=== PATIENT | female | born 1995 | race Caucasian/White ===

== ENCOUNTER 2017-04-21 22:20 | Emergency (ER) | payer OTHER ==
[~2017-04-21] VITALS: Ht 160 cm; Wt 71.2 kg
--- NOTE | ~2017-04-21 | CR181 ---
[facility] A Service of [facility] RADIOLOGY TEXT RESULTS PATIENT: NEDA OCHOA LOCATION: SED : [birth year] UNIT #: [id number] AGE: [address]: Anam Ro DO SEX: F ORDER DR: [id number] [place] [id number] E MR#: [id number] Acc #: [id number] NAME: NEDA OCHOA : 1995 SEX: F STUDY DATE/TIME: 04/21/2017 23:32 UNIT: SED ROOM: STUDY DESCRIPTION: CR Lumbar Spine 2 or 3 Views Attending Physician: Anam Ro D.O.. Ordering Physician: Anam Ro D.O.. Primary Care Physician: Primary Care Physician No MEDICAL IMAGING REPORT This report is preliminary unless electronic signature is present. EXAM Lumbar spine series, 04/21/2017 HISTORY 22-year-old female in the ED complaining of several day history of low back pain radiating down right lower extremity. No reported acute injury. TECHNIQUE Three-view lumbar spine series. FINDINGS The examination is negative. No acute or chronic fracture deformity or additional osseous lesion is demonstrated. Lumbar disc spaces and lumbar vertebral alignment are within normal limits. IMPRESSION Negative lumbar spine series. Dictated by... Nikolas Wilde M.D. THIS IS AN ELECTRONICALLY VERIFIED REPORT Nikolas Wilde M.D. at 04/23/2017 6:02 AM SHAHBAZ/[place] TD: 04/23/2017 00:28 JOB #: [id number] MEDICAL IMAGING REPORT [facility] A Service of [facility] RADIOLOGY TEXT RESULTS PATIENT: NEDA OCHOA LOCATION: SED : [birth year] UNIT #: [id number] AGE: [address]: Anam Ro DO SEX: F ORDER DR: Page 1 of 1
[~2017-04-21 22:20] MED LIST: BENTYL10 MG PO; DICLOFENAC PO; EC-NAPROSYN500 MG PO; FLEXERIL PO; FLEXERIL10 MG PO; IBUPROFEN PO; NEXPLANON68 MG SQ; ORTHO TRI-7 DAYSX 3 PO; PHENERGAN25 M1 PO; VOLTAREN50 MG PO
[2017-04-21] MEDS ORDERED: HYDROXYZINE HCL25 M1 PO (22:33)
[2017-04-21] MEDS ORDERED: FOLBIC RF TABL1 EACH PO (22:33)
[2017-04-21] MEDS ORDERED: ZOLOFT100 MG PO (22:33)
[2017-04-21 22:51] LABS: URINE SOURCE CLEAN CATCH
[2017-04-21 22:59] LABS: URINE APPEARANCE CLEAR; URINE BILIRUBIN NEG (NEG); URINE BLOOD TRACE-INTACT (NEG); URINE COLOR YELLOW; URINE GLUCOSE NEG (NORM); URINE KETONE NEG (NEG); URINE LEUKOCYTE ESTERASE NEG (NEG); URINE NITRATE NEG (NEG); URINE PROTEIN NEG (NEG); URINE SPECIFIC GRAVITY 1.025 (1.003-1.035); URINE UROBILINOGEN 0.2 MG/DL (NORM)
[2017-04-21 23:02] LABS: MICRO INDICATED? YES
[2017-04-21 23:06] LABS: CULTURE INDICATED? NO; URINE BACTERIA NEG (NEG)
== END 2017-04-22 00:39 | disposition home or self-care (01) ==
LOC: SED 22:20
PROVIDERS: Emergency Medicine
DX: S33.5XXA Sprain of ligaments of lumbar spine, initial encounter (principal); F41.9 Anxiety disorder, unspecified; X58.XXXA Exposure to other specified factors, initial encounter
CPT/HCPCS: 72100; 81003; 84703; 96372; 99284; J1100; J1885